=== PATIENT | female | born 1975 | race American Indian/Alaskan Native ===

== ENCOUNTER 2021-07-18 09:29 | Outpatient (CLI) | payer BC ==
[2021-07-18 10:16] LABS: Alanine Aminotransferase 11 units/L (7-56); Albumin 4.3 g/dL (3.9-5); Blood Urea Nitrogen 8 mg/dL (7-17); Hemolysis Index 13
[2021-07-18 10:20] LABS: BUN/Creatinine Ratio 13
[2021-07-18 15:42] LABS: Creatinine,Urine 51.5 mg/dL (0.1-20.0)
[2021-07-18 15:43] LABS: Microalbumin/Creatinine Ratio 23.3 ug/mg
== END 2021-07-18 09:30 | disposition home or self-care (01) ==
LOC: LAB 09:29
PROVIDERS: ATTEND Family Medicine
DX: R73.03 Prediabetes (principal)
CPT/HCPCS: 36415; 80053; 82043; 83036

== ENCOUNTER 2021-08-10 09:03 | Outpatient (CLI) | payer BC ==
--- NOTE | 2021-08-10 13:57 | Magnetic Resonance Report ---
MRI LEFT THIGH WITHOUT CONTRAST INDICATION / CLINICAL INFORMATION: M79.652 PAIN LEFT THIGH ,. TECHNIQUE: Multiplanar, multisequence MR images were obtained. COMPARISON: None available. FINDINGS: BONES: No significant bone marrow edema. No fracture. No osseous lesion. MUSCLES: No significant abnormality. SOFT TISSUES: No significant abnormality. VISUALIZED JOINTS: No significant abnormality. ADDITIONAL FINDINGS: None. IMPRESSION: 1. No significant abnormality. Signer Name: John Estrada MD Signed: 08/10/2021 1:53 PM Workstation Name: [id number]
--- NOTE | 2021-08-10 14:01 | Magnetic Resonance Report ---
MRI LUMBAR SPINE 08/10/2021 INDICATION / CLINICAL INFORMATION: M79.652 PAIN LEFT THIG, LT LEG AND FOOT NUMBNESS. 15ML CLARISCAN COMPARISON: None available. FINDINGS: GENERAL OBSERVATIONS: Unenhanced and enhanced MR images of the lumbar spine were obtained. There is no evidence of acute abnormality. Vertebral body alignment is normal. There is no abnormal contrast enhancement. Disc profiles are normal at all levels. There is no evidence of disc herniation or nerve root julieta veronika. BONE MARROW: Normal SPINAL CORD/CAUDA EQUINA: Normal PARASPINAL SOFT TISSUES: No significant abnormality. IMPRESSION: Negative unenhanced and enhanced MRI of the lumbar spine. Signer Name: Allen Page MD Signed: 08/10/2021 1:57 PM Workstation Name: [id number]
== END 2021-08-10 09:04 | disposition home or self-care (01) ==
LOC: CT 09:03
PROVIDERS: ATTEND Family Medicine
DX: M79.652 Pain in left thigh (principal); G56.92 Unspecified mononeuropathy of left upper limb
CPT/HCPCS: 72158; 73718; A9575